=== PATIENT | male | born 1990 | race Caucasian/White ===

== ENCOUNTER 2021-03-29 00:46 | Emergency (ER) | payer SELFPAY ==
[2021-03-29 00:48] VITALS: BP 117/77; PULSE 64; RESP 21; TEMP 36.6; O2SAT 99; BMI 25.3
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
--- NOTE | 2021-03-29 00:52 | EKG12_ITS ---
Test Reason : DYSRHYTHMIA Blood Pressure : / mmHG Vent. Rate : 075 BPM Atrial Rate : 075 BPM P-R Int : 198 ms QRS Dur : 070 ms QT Int : 402 ms P-R-T Axes : 066 067 062 degrees QTc Int : 448 ms Normal sinus rhythm Normal ECG Confirmed by MELINDA TREJO, LOUIE ([id number]), legal editor DEVIN GTZ ([id number]) on 03/29/2021 11:25:44 AM Referred By: CLOVER Confirmed By:LOUIE LAWRENCE MD
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
--- NOTE | 2021-03-29 00:59 | ED.RN ---
TOURNIQUET REMOVED BY DR. CURTIS AT 0045.
[2021-03-29] MEDS: Diphth,Pertuss(Acell),Tet Vac 0.5 ML Vial IM (01:03)
[2021-03-29] MEDS: Cefazolin 1 GM/50 ML BAG IV (01:04)
[2021-03-29] MEDS: Ondansetron 4 MG/2 ML Vial IV (01:04)
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
[2021-03-29 01:11] LABS: Absolute Lymphocyte Count 2.89 X10^3/uL (0.83-4.51); Absolute Neutrophil Count 6.2 X10^3/uL (2.0-7.7); Basophil# 0.12 X10^3/uL; Basophil% 1.1 % (0-1); Eosinophil# 0.22 X10^3/uL; Eosinophils% 2.1 % (0-5); Hematocrit 37.3 % (40-54); Hemoglobin 13.6 g/dL (13.0-16.5); Lymphocyte # 2.89 X10^3/ul (0.83-4.51); Lymphocyte % 27.3 % (19-41); Mean Corp Hgb Conc 36.5 g/dL (32-36); Mean Corpuscular Hgb 37.8 pg (27.0-32.0); Mean Corpuscular Volume 103.6 fL (80-94); Mean Platelet Vol. 8.7 fl (6.2-12.0); Monocyte# 1.05 X10^3/uL; Monocyte% 9.9 % (0-10); NRBC Flagged by Analyzer 0 % (0-5); Neutrophil # 6.22 X10^3/uL (2.7-7.7); Neutrophil % 58.7 % (47-70); Platelet Count 225 K/mm3 (150-450); RBC Distribution Width CV 13.3 % (11.6-14.6); RBC Distribution Width SD 51.1 fl (35.1-43.9); White Blood Count 10.6 K/mm3 (4.4-11.0)
[2021-03-29] MEDS: fentaNYL 100 MCG/2 ML Ampul 50 MCG IV ×2 (01:11→03:04)
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
[2021-03-29 01:27] LABS: International Normalized Ratio 1.1; Prothrombin Time (Protime)PT. 13.4 SECONDS (11.7-14.9)
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
[2021-03-29 01:28] LABS: Partial Thromboplast Time 26.6 Seconds (24.1-36.2)
[2021-03-29 01:30] LABS: ALB/GLOB Ratio 0.9 RATIO (0.9-2.4); AST(SGOT) 82 U/L (15-37); Alanine Aminotransfer ALT/SGPT 47 U/L (16-61); Albumin, Serum 3.4 g/dL (3.2-5.0); Alkaline Phosphatase 89 U/L (45-117); Anion Gap 7 (5-15); BUN 5 mg/dL (7-18); BUN/Creat Ratio 6.3 RATIO (10-20); Calcium,Total 8.6 mg/dL (8.5-10.1); Chloride 106 mmol/L (98-107); Creatinine, Serum 0.79 mg/dL (0.70-1.30); EST Glomerular Filtration Rate 124 mL/min (>60); Est Glom Filt Rate - Afr Amer 150 mL/min (>60); Estimated Creatinine Clearance 130.15 ml/min; Globulin 3.7 g/dL (2.2-4.2); Glucose 108 mg/dL (74-106); Potassium 3.4 mmol/L (3.5-5.1); Protein, Total 7.1 g/dL (6.4-8.2); Sodium Level 140 mmol/L (136-145)
[2021-03-29 01:49] VITALS: BP 131/86; PULSE 87; RESP 22; O2SAT 98
--- NOTE | 2021-03-29 01:49 | ED.RN ---
Placed ice and elevated leg to a high tolerable to pt.
[2021-03-29 02:09] VITALS: BP 105/58; PULSE 84; RESP 20; O2SAT 100
[2021-03-29 02:25] LABS: Bacteria 0 SEEN /hpf (None Seen); Color, Urine Yellow (Yellow); Glucose, Dipstick Normal (Normal); Ketone-Dipstick Negative (Negative); Leukocyte Esterase-Dipstick Negative /ul (Negative); Mucous, Urine 0 SEEN /hpf (<or=2+); Nitrite-Dipstick Negative (Negative); Occult Blood-Urine 10 /ul (Negative); Protein-Dipstick 15 mg/dl (Negative); Red Blood Cells-Urine 0 SEEN /hpf (0-5); Specific Gravity, Urine 1.005 (1.002-1.030); Squamous Epithelial Cells - UA 0 SEEN /hpf (0-5); Urine Bilirubin Dipstick Negative (Negative); Urine Clarity Clear (Clear); Urine Urobilinogen Normal (Normal); White Blood Cells 0 SEEN /hpf (0-5)
[2021-03-29 02:38] LABS: Amphetamine Urine VISTA NEGATIVE (<1000 ng/mL); Barbiturate Urine VISTA NEGATIVE (< 200 ng/mL); Benzodiazepine Urine VISTA NEGATIVE (< 200 ng/mL); Cocaine Urine VISTA NEGATIVE (< 300 ng/mL); Ecstacy Urine VISTA NEGATIVE (< 500 ng/mL); Methadone Urine VISTA NEGATIVE (< 300 ng/mL); PCP Urine VISTA NEGATIVE (< 25 ng/mL); THC Urine VISTA POSITIVE (< 50 ng/mL); Vista UDS pH Range 6
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
[2021-03-29 03:10] VITALS: BP 107/68; PULSE 82; RESP 16; O2SAT 100
[2021-03-29 03:37] VITALS: BP 108/60; PULSE 87; RESP 16; TEMP 36.6; O2SAT 100
== END 2021-03-29 03:42 | disposition short-term general hospital (02) ==
PROVIDERS: Emergency Provider Emergency Medicine
DX: S82.201B Unspecified fracture of shaft of right tibia, initial encounter for open fracture type I or II (principal); S82.401B Unspecified fracture of shaft of right fibula, initial encounter for open fracture type I or II; S00.03XA Contusion of scalp, initial encounter; S30.0XXA Contusion of lower back and pelvis, initial encounter; S50.312A Abrasion of left elbow, initial encounter; S50.311A Abrasion of right elbow, initial encounter; S60.512A Abrasion of left hand, initial encounter; S60.511A Abrasion of right hand, initial encounter; S80.212A Abrasion, left knee, initial encounter; S80.211A Abrasion, right knee, initial encounter; Z23 Encounter for immunization; V87.8XXA Person injured in other specified noncollision transport accidents involving motor vehicle (traffic), initial encounter; Y93.9 Activity, unspecified; Y92.9 Unspecified place or not applicable; Y99.9 Unspecified external cause status; F10.129 Alcohol abuse with intoxication, unspecified; Y90.8 Blood alcohol level of 240 mg/100 ml or more; F17.210 Nicotine dependence, cigarettes, uncomplicated
CPT/HCPCS: 29515; 70450; 71260; 72125; 73590; 74177; 80053; 80307; 81001; 82077; 85025; 85610; 85730; 90715; 93005; 96365; 96375; 96376; 99285; Q9967; J2405